=== PATIENT | male | born 1930 | race Caucasian/White ===

== ENCOUNTER 2017-04-20 08:03 | Day surgery (SDC) | payer MEDICARE, OTHER ==
[2017-04-20] VITALS (9 sets, daily range): BP systolic 97–129; BP diastolic 41–53; PULSE 56–68; RESP 14–20; O2SAT 92–100
[~2017-04-20] VITALS: Ht 180.3 cm; Wt 80.6 kg
[~2017-04-20 08:03] MED LIST: ASPI-973 PO; FINA5TAB9 PO; FUR20 PO; LEVO112T4 PO; LISI-567 PO; Lactated Ringer's 1,000 ML IV ONE; Levofloxacin 500 mg/100 mL D5W IV ONE; POTA10TA7 PO; SIMV40TA2 PO
[2017-04-20] MEDS ORDERED: Propofol 10,000 mCg/mL 20 mL Inj ONE (08:04)
[2017-04-20] MEDS ORDERED: Ketamine 10 mg/mL 20 mL Inj ONE (08:04)
[2017-04-20] MEDS ORDERED: Dexamethasone 4 mg/mL Inj ONE (08:04)
[2017-04-20] MEDS ORDERED: Ondansetron 2 mg/mL 2 mL Inj ONE (08:04)
[2017-04-20] MEDS ORDERED: fentaNYL-PF 50 mCg/mL 2 mL Inj ONE (08:04)
[2017-04-20] MEDS: Acetaminophen IV 1,000 mg IV ONE ×2 (08:05→10:40)
[2017-04-20] MEDS ORDERED: Lactated Ringer's 500 ML IV PRN (08:54)
[2017-04-20] MEDS ORDERED: Lactated Ringer's 1,000 ML IV SCH (08:54)
--- NOTE | 2017-04-20 08:54 | PCM.HPANE ---
Patient Data Surgeon Admitting Provider: Attending Provider:Denise Chery MD Primary Care Physician:Talon Other Provider:Eun Espinoza Anesthesia Reason for Visit Urinary Retention Ht/WT & BMI Height (Feet): 5 Height (Inches): 11 Weight (Kilograms): 68.038 Body Mass Index 20.00 Allergies Coded Allergies: cephalexin (Verified Allergy, Unknown, UNKNOWN, 04/15/17) Past Anesthesia History Anesthesia History: Positive for:: Anesthesia Reactions (Had agitation and SOB coming out of something), Denies:: Abnormal Airway, Difficult Intubation, Malignant Hyperthermia Diabetes History Hx Diabetes?: No MRSA MRSA: No Medications Blood Thinner: Aspirin Hypertension Medication: Yes (LASIX,LISINOPRIL) Home Meds Incl Beta Juvenal: No Reported Medications Potassium Chloride ER (Klor-Con 10)10 Meq [id number] Meq PO DAILY Ref 0 04/03/16 Lisinopril 20 Mg Zvpcwe38 Mg PO BID 30 Days Ref 0 04/03/16 Levothyroxine 112 Mcg [id number] Mcg PO DAILY For Thyroid Replacement Ref 0 04/03/16 Furosemide 20 Mg Tab20 Mg PO DAILY 30 Days Ref 0 04/03/16 Aspirin 81 Mg Drpbrr23 Mg PO DAILY Ref 0 04/03/16 Simvastatin (Zocor)40 Mg Punefi32 Mg PO HS 30 Days Ref 0 04/03/16 Finasteride 5 Mg Tablet5 Mg PO DAILY 30 Days Ref 0 04/03/16 History History of ENT Problems?: Yes HEENT History: Positive for:: Hearing Problem Denies:: Abnormal Airway Cataracts Difficult Intubation Dysphagia Sinus Problem Denture Type: None Teeth Condition: Within Normal Limits Hx of Heart Problems?: Yes Cardiovascular History: Positive for:: Chest Pain (HX [place]) Edema (LE R/T VENOUS INSUFFICIENCY) Heart Murmur (GR II/ LASHON @ [facility] ECHO 07/2015 EF 45%-HEART CATH 04/2016 EF 40%) Hypertension (HYPERLIPIDEMIA) Pacemaker (FOR SSS-INSERT. 02/17,LEAD REVISION 05/20,BATTERY CHANGE 03/27) Valvular Heart Disease (MILD MR) Denies:: Congestive Heart Failure Irregular Heartbeat Hx of Respiratory Problem?: Yes Respiratory History: Positive for:: Chest Surgery Dyspnea (SHARMA) Denies:: Asthma Pneumonia Tuberculosis Use of C-PAP Machine Hx Neurologic Problems?: Yes Neurological History: Denies:: Alzheimer's Disease CVA Dementia Dizziness Headaches Parkinson's Disease Seizures Hx of GI Problems?: Yes Other GI Pertinent History: S/P UMBILICAL HERNIA RPR X2 Hx of Problems?: Yes Genitourinary History: Positive for:: Urinary Tract Infection (HX OF) Other Pertinent History: S/P CYSTOS,CIRCUMCISION Male Hx: Positive for:: Prostate Problems (S/P REMOTE TURP,PROSTATE BX URINARY RETENTION/BPH=CURRENT PROBLEM) Scrotal Mass (HX OF SPERMATOCELE) Denies:: Testicular Surgery Skin History: Denies:: History Skin Disorders? Pressure Ulcers Hx Musculoskeletal Problems?: No Musculoskeletal History: Denies:: Back Injury Hx of Psycho/Social Problems?: No Psycho Social History: Denies:: Anxiety Hx Depression Suicide Attempt Hx Surgeries?: Yes (UMB HERNIA RPR X2,PACMAKER,LEAD REVISION,BATTERY CHANGE, TURP,HEART CATH X2) Hx Any Other Health Problems?: Yes Other History: Positive for:: Hospitalization Thyroid Disease Denies:: Cancer Endocrine Disease History Blood Transfusions: Denies:: Blood Transfusions Hx Diabetes: No Hx Alcohol Use: Yes (Occ.)Hx Substance Use: No Smoking Status: Former Smoker Current Some Day Smoker Have You Smoked inLast 12 mo: Yes (Occ. Cigar) Stop/Bang Treated for Sleep Apnea?: No S-Snoring: Do You Snore Loudly: No T-Tired: feel tired, fatigued: Yes O-Obsered: Observed not breath: No P-Blood Pressure: treated: Yes B- Body Mass Index > 35 kg/m2: No A- Age over 50: Yes N- Neck Large Circumference: No G- Gender Male: Yes SOPHIE Total Score: 4 SOPHIE Risk Assessment: High Risk, =/>3 Yes SOPHIE Category 4 OutPt Procedure: Yes Risk Assessment Category Category 1A: Patient has history of documented sleep apnea, and HAS NOT received any narcotic, sedative or anesthesia administration during this stay. Category 1B: Patient has history of documented sleep apnea, and HAS received any narcotic , sedative or anesthesia administration during this stay Category 2: Patient has SUSPECTED Obstructive Sleep Apnea, and HAS received any narcotic , sedative or anesthesia administration during this stay. Category 3: Patient has SUSPECTED Obstructive Sleep Apnea and HAS NOT received narcotic, sedative or anesthesia administration during this stay. Category 4: Outpatient in Procedural Areas with known sleep apnea or who screen positive for High Risk via the STOP/BANG questionnaire. Exam Exam General Appearance: Alert, Oriented X3, Cooperative, No Acute Distress HEENT/AIRWAY: MP 2 Lungs: Clear to Auscultation, Normal Air Movement Heart: Exam Unremarkable, Regular Rate/Rhythm, No Murmurs/Rubs/Gallops Meds/Labs/Diagnostics Admission Meds Current Medications Acetaminophen/ Premix (Tylenol IV/IV Premix) 100 ml @ 400 mls/hr PREOP ONCE IV Last administered on 04/20/17t 08:05; Start 04/20/17 at 06:00; Stop at 06:14; Status DC Plan Impression Patient chart reviewed, patient interviewed and anesthestic plan with risks, benefits, and alternatives discussed, and informed consent obtained. ASA Physical Status: ASA3 Severe Disease (pacemaker) Anesthetic Plan: GA Bene/Risks/Altern/Consents: Yes HP Complete Prior to Induction: Yes Austin Gold MD Apr 20, 2017 08:54
[2017-04-20] MEDS ORDERED: HYDROmorphone 1 mg/mL Inj IVPUSH PRN ×2 (08:55→13:30)
[2017-04-20] MEDS ORDERED: EPHEDrine Sulfate 50 mg/mL Inj IVPUSH PRN (08:55)
[2017-04-20] MEDS ORDERED: fentaNYL-PF 50 mCg/mL 2 mL Inj IVPUSH PRN (08:55)
[2017-04-20] MEDS ORDERED: Dexamethasone 4 mg/mL Inj IVPUSH PRN (08:55)
[2017-04-20] MEDS ORDERED: Ondansetron 2 mg/mL 2 mL Inj IVPUSH PRN ×2 (08:55→13:30)
[2017-04-20] MEDS ORDERED: Phenylephrine 10,000 mCg/mL Inj IVPUSH PRN (08:55)
[2017-04-20] MEDS ORDERED: MetoCLOpramide 5 mg/mL 2 mL Inj IVPUSH PRN ×2 (08:55→13:30)
[2017-04-20] MEDS ORDERED: Belladonna Alk-Opium 60 mg Rectal Suppository RECTAL ONE (12:28)
[2017-04-20] MEDS ORDERED: diphenhydrAMINE 25 mg Capsule PO PRN (13:30)
[2017-04-20] MEDS ORDERED: Belladonna Alk-Opium 60 mg Rectal Suppository RECTAL PRN (13:30)
[2017-04-20] MEDS ORDERED: Acetaminophen IV 1,000 MG in IV Premix 1 EACH IV PRN (13:30)
[2017-04-20] MEDS ORDERED: Polyethylene Glycol (PEG) 17 Gm Powder PO PRN (13:30)
[2017-04-20 14:11] LABS: APPEARANCE,URINE HAZY (CLEAR,HAZY); COLOR,URINE YELLOW (YELLOW); OCCULT BLOOD,URINE NEGATIVE (NEGATIVE); UROBILINOGEN,URINE NORMAL (NORMAL)
--- NOTE | 2017-04-20 14:47 | PCM.ANEP1 ---
Post Anesthesia PACU Phase 1 Assessment Vital Signs Vital Signs Date Time Temp Pulse Resp B/P Pulse Ox O2 Delivery O2 Flow Rate FiO2 04/20/17 14:10 56 20 125/53 04/20/17 14:02 62 16 112/51 95 Nasal Cannula 3 04/20/17 13:45 36.3 67 15 117/44 94 Nasal Cannula 3 04/20/17 13:40 68 15 117/41 92 Nasal Cannula 2 04/20/17 13:35 66 16 124/51 92 Nasal Cannula 2 04/20/17 13:30 65 14 125/51 96 Nasal Cannula 2 04/20/17 13:27 36.5 63 18 129/45 100 Simple Mask 8 04/20/17 08:51 36.0 61 18 97/47 100 Room Air Anesthetic Administered: GA Level of Alertness: Awake, talking PERKINS's with Equal Strength: Yes Pain: No Nausea or Vomiting: No CV Function & Hydration Stable: Yes Airway Device: natural Lungs: Clear to Auscultation, Normal Air Movement Dermatome Level: Full Sensation PACU Phase 2 Assessment Complications: No Follow up Care: No Patient Instructions Provided: N/A Austin Gold MD Apr 20, 2017 14:47
[2017-04-20] MEDS: Lactated Ringer's 1,000 ML IV SCH ×2 (15:16→21:28)
--- NOTE | 2017-04-20 18:29 | NUR ---
Arrival to 1025 Pt transferred from PACU with 3way irrigation running, watermelon colored urine. Pt A&Ox3 and able to transfer to bed independently. Pt reports minimal "pain" near the catheter but refused medications at this time. He denies nausea but states "I just feel kind of weird". at bedside reports he is very hard of hearing and they left his hearing aids at home in [facility] they didn't anticipate an overnight stay.
[2017-04-21 01:20] VITALS: BP 124/61; PULSE 64; RESP 18; O2SAT 98
--- NOTE | 2017-04-21 04:23 | NUR ---
Bladder irrigation 3 way cope continuous irrigation continues, red to watermelon in color. Pt has 0 c/o pain or nausea. States he feels pressure like he has to urinate but no pain. Tolerated general diet and PO fluids well. Bedrest this shift. Pt is [place] but able to communicate. Care continues
[2017-04-21] MEDS: Lactated Ringer's 1,000 ML IV SCH ×2 (05:08→13:28)
[2017-04-21 06:45] VITALS: BP 128/68; PULSE 69; RESP 16; O2SAT 97
--- NOTE | 2017-04-21 07:43 | OP ---
[address] [address] OPERATIVE REPORT PATIENT: ANGIE BROWN : 1930 MR#: [id number] ADMIT: 04/20/2017 JOB ID: [id number] DATE OF SURGERY: 04/20/2017 PREOPERATIVE DIAGNOSIS(ES): 1. Urinary retention. 2. Recurrent Enterococcal urinary tract infection. POSTOPERATIVE DIAGNOSIS(ES): 1. Urinary retention. 2. Recurrent Enterococcal urinary tract infection. OPERATION PERFORMED: Transurethral resection of the prostate (underbeat). SURGEON: Denise Chery MD ANESTHESIOLOGIST: Austin Gold MD ANESTHESIA: General. FINDINGS: Urethra normal. External sphincter intact. Prostate 5-5.5 cm length with obstructing right lateral lobe hyperplasia and anterior hyperplasia. Bladder neck is open. Bladder 2+ trabeculation. Normal orifices bilaterally. Early cellule formation. No stone, diverticulum or tumor seen. PROCEDURE SUMMARY: The patient was positioned in the semi-lithotomy position, and the lower abdomen, genitalia, perineum, and groin were prepped and draped in a sterile fashion. The 27-[place]ese resectoscope was then positioned in the lower urinary tract. It was fitted with the resecting loupe and 30-degree lens. TUR of the median lobe and floor of the prostate was then undertaken, starting at the bladder neck and continuing to the verumontanum. Next, tissue of the left lateral, followed by right lateral lobes were resected, and then finally obstructing tissue apically was resected. At no point was resection taken more distal than the verumontanum nor deeper than the surgical capsule. Hemostasis was satisfactorily accomplished with electrocautery. All chips and clots were irrigated and/or manually extracted from the bladder and prostatic fossae. The bladder was left partially filled, and all instrumentation was removed. A 24-[place]ese, 3-way Madden catheter was then inserted, in the lower urinary tract, and was placed on 0.9 normal saline continuous bladder irrigation. The patient was then awakened and transferred to the [facility] and transferred to the recovery area awake in stable condition. The patient tolerated the procedure well.
--- NOTE | 2017-04-21 08:22 | NUR ---
Spoke with Keyanna in patient access at [facility] and this patient is non service connected. He hold [place] MCR and MCR D. He currently is not seen by a PCP at the [place]. In February they gave patient choice consult for Urologist and patient went to . Updated DIRECTOR RECORDS MANAGEMENT
[2017-04-21 08:27] VITALS: BP 135/54; PULSE 73; RESP 18; O2SAT 97
--- NOTE | 2017-04-21 10:41 | NUR ---
Social Work- Multi-Disciplinary Rounds Pt is likely to discharge today, no discharge orders are active yet. No social work needs identified in rounds. SW will continue to follow if needs arise. HCEO Mendez
[2017-04-21 12:12] VITALS: BP 129/45; PULSE 65; RESP 20; O2SAT 97
--- NOTE | 2017-04-21 13:42 | NUR ---
Madden Madden d/c'd intact. Pt voided 50cc with PVR 0. Pt voided 100cc with PVR of 34. Brief placed d/t pt incontinence. Pt denies any pain or discomfort. Addendum: 04/21/17 at 1555 by GUANACO DSOUZA RN Pt voided another 50cc with PVR of 40cc. notified. Ok to d/c home. Encouraged increased po intake. Teaching done with pt and at bedside. Both agreed to increase fluid intake.
--- NOTE | 2017-04-21 16:16 | NUR ---
Discharge Pt d/c'd at 1614 from [facility] room 1025 home via private vehicle. Pt [place] and all discharge teaching and instructions done with at bedside. All questions and concerns addressed. IV d/c'd intact. Pt to take all home medications as prescribed by MD. MD office to call and make apt with pt to f/u. Hard copy of RX with pt. No items in the safe or pharmacy. Pt voided and bladder scan done with PVR of 42. Pt denies any abdominal fullness or discomfort. Extra briefs sent home with pt as he is "dribbling".
--- NOTE | 2017-04-22 18:25 | DIS ---
[address] [address] DISCHARGE SUMMARY PATIENT: ANGIE BROWN : 1930 MR#: [id number] ADMIT: 04/20/2017 JOB ID: [id number] DIS: 04/21/2017 ADMISSION DIAGNOSES: 1. Urinary retention. 2. Recurrent enterococcus urinary tract infection. 3. Obstructing nodular prostatic regrowth. DISCHARGE DIAGNOSES: 1. Urinary retention. 2. Recurrent enterococcus urinary tract infection. 3. Obstructing nodular prostatic regrowth. PROCEDURE PERFORMED: Transurethral resection of the prostate. HOSPITAL SUMMARY: The patient was admitted on the morning on April 20, 2017, and underwent uncomplicated transurethral resection of the prostate under general anesthesia. His postoperative course was largely unremarkable in that he tolerated a general diet, had minimal postoperative discomfort, was able to ambulate without difficulty, and subsequently voided successfully after removal on the morning of the first postoperative day. In the early afternoon of April 22, 2017, he was stable for discharge and was provided prescriptions for oxycodone and Septra. The pathology was pending at discharge. A followup visit in my office is requested in 4-6 weeks with a PVR.
--- NOTE | 2017-04-22 18:51 | DIS ---
[address] [address] DISCHARGE SUMMARY PATIENT: ANGIE BROWN : 1930 MR#: [id number] ADMIT: 04/20/2017 JOB ID: [id number] DIS: 04/21/2017 DATE: 04/20/2017 PREOPERATIVE DIAGNOSIS(ES): 1. Urinary retention. 2. Recurrent enterococcus urinary tract infection. POSTOPERATIVE DIAGNOSIS(ES): 1. Urinary retention. 2. Recurrent enterococcus urinary tract infection. OPERATION PERFORMED: Redo transurethral resection of prostate ([facility]). SURGEON: Denise Chery MD ANESTHESIOLOGIST: Austin Gold MD ANESTHESIA: General. FINDINGS: Urethra normal. External sphincter intact. Prostate 4.5 to 5 cm length with obstructing recurrent nodular regrowth anteriorly apically and anteriorly in mid prostatic fossa in the mid zone extending across the midline and essentially filling the TUR void. Severe trabeculation and cellule formation, diverticula, normal orifices bilaterally. No stones or tumors seen. PROCEDURE SUMMARY: Patient was positioned in the semi-lithotomy position, and the lower abdomen, genitalia, perineum, and groin were prepped and draped in a sterile fashion. The 27-Bulgarian resectoscope was then positioned in the lower urinary tract. It was fitted with the resecting loupe and 30-degree lens. TUR of the median lobe and floor of the prostate was then undertaken, starting at the bladder neck and continuing to the verumontanum. Next tissue of the left lateral, followed by right lateral lobes were resected, and then finally obstructing tissue apically was resected. At no point was resection taken more distal than the verumontanum nor deeper than the surgical capsule. Hemostasis was satisfactorily accomplished with electrocautery. All chips and clots were irrigated and/or manually extracted from the bladder and prostatic fossae. The bladder was left partially filled, and all instrumentation was removed. A 24-Bulgarian three-way Madden catheter was then inserted, in the lower urinary tract, and was placed on 0.9 normal saline continuous bladder irrigation. Patient was then awakened and transferred to the [facility] and transferred to the recovery area awake in stable condition. The patient tolerated the procedure well.
--- NOTE | 2017-04-23 09:33 | PATH ---
SURGICAL PATHOLOGY Attending Physician:Denise Chery MD CASE STATUS: Signed Out PATIENT NAME: ANGIE BROWN PID: [id number] : 1930 DATE COLLECTED:04/20/2017 00:00 SPECIMEN: Prostate, Chips CLINICAL HISTORY: 1). PROSTATE CHIPS FINAL DIAGNOSIS: 1.PROSTATE CHIPS, TRANSURETHRAL RESECTION (WEIGHT 16 GRAMS): PROSTATIC TISSUE WITH GLANDULAR AND STROMAL HYPERPLASIA AND MILD, FOCAL CHRONIC PROSTATIS; NEGATIVE FOR ATYPIA AND MALIGNANCY. PORTIONS OF BENIGN METAPLASTIC SQUAMOUS MUCOSA AND SUBMUCOSA, SUGGESTIVE OF POSSIBLE BLADDER NECK ORIGIN; NEGATIVE FOR ATYPIA AND MALIGNANCY. ICD10 N40.1 GROSS DESCRIPTION: Received one formalin-filled container, labeled with the patient's name and labeled "prostate chips". Specimen consists of multiple portions of tissue which aggregate to 6.0 x 3.0 x 2.0 cm. Specimen weighs 16 grams in total. Transporter Radiology sections are submitted in eight cassettes. ([facility]:[id number]) MICRO DESCRIPTION: See diagnosis. ICD-9 CODES: CPT CODES: 1: 46595 Electronically Signed Out Love Perez MD [facility] Pathology [facility] [address], [place] [address] Technical component performed at [facility], [address] [place] [address] Ave[address], [place], [address]
== END 2017-04-21 16:19 | disposition home or self-care (01) ==
LOC: SAS 08:03 → OSC 14:13 → SAS 04-21 16:19
PROVIDERS: ATTEND Specialist
DX: N40.1 Benign prostatic hyperplasia with lower urinary tract symptoms (principal); R33.8 Other retention of urine; N41.1 Chronic prostatitis; N39.0 Urinary tract infection, site not specified; B95.2 Enterococcus as the cause of diseases classified elsewhere; I10 Essential (primary) hypertension; Z95.0 Presence of cardiac pacemaker; Z79.82 Long term (current) use of aspirin
CPT/HCPCS: 52601; 81000; J0131; J1100; J2405; J3010; J7120